=== PATIENT | female | born 1955 | race Caucasian/White ===

== ENCOUNTER → 2018-09-08 | Outpatient (CLI) | payer MEDICARE ==
[~2018-09-08] MED LIST: ACET-1600 PO; LISI-170 PO
== END | disposition home or self-care (01) ==
LOC: STAR 13:35
PROVIDERS: ATTEND Urology
DX: Z01.818 Encounter for other preprocedural examination (principal); N20.0 Calculus of kidney
CPT/HCPCS: 93005

== ENCOUNTER 2018-09-13 10:07 | Observation (INO) | payer MEDICARE ==
[~2018-09-13] VITALS: Ht 162.6 cm; Wt 82.4 kg
[2018-09-13] MEDS ORDERED: SODIUM CHLORIDE 0.9% 1,000 ML IV SCH (10:45)
[2018-09-13] MEDS ORDERED: LACTATED RINGERS 1,000 ML IV SCH (10:45)
[2018-09-13] MEDS ORDERED: CEFAZOLIN PMX 1GM/50ML 50 ML IV ONE (11:00)
[2018-09-13 11:14] VITALS: BP 128/86
[2018-09-13] MEDS ORDERED: FENTANYL PF 250 MCG/5ML ONE (11:54)
[2018-09-13] MEDS ORDERED: LIDOCAINE-MPF 1%, 5ML ONE (12:08)
[2018-09-13] MEDS ORDERED: FENTANYL PF 100 MCG/2ML ONE ×3 (12:13→17:42)
[2018-09-13] MEDS ORDERED: NALOXONE 1 MG/ML, 2ML ONE (12:14)
[2018-09-13] MEDS ORDERED: MIDAZOLAM 1 MG/ML, 5ML ONE ×2 (12:14)
[2018-09-13] MEDS ORDERED: FLUMAZENIL 0.1 MG/1 ML, 5ML ONE (12:14)
[2018-09-13] MEDS ORDERED: ONDANSETRON 2MG/ML, 2ML IVPush ONE (15:00)
[2018-09-13] MEDS ORDERED: DEXAMETHASONE 4 MG/ML, 1ML ONE (15:10)
[2018-09-13] MEDS ORDERED: CIPROFLOXACIN 400MG/200ML PMX ONE (15:10)
[2018-09-13] MEDS ORDERED: PROPOFOL 10 MG/ML, 20ML ONE (15:10)
[2018-09-13] MEDS ORDERED: GLYCOPYRROLATE 0.2MG/1ML, 5ML ONE (15:10)
[2018-09-13] MEDS ORDERED: ROCURONIUM 10MG/ML,5ML ONE (15:10)
[2018-09-13] MEDS ORDERED: OMNIPAQUE 350 MG/ML, 50 ML BOTTLE ONE (15:15)
[2018-09-13] MEDS ORDERED: MEPERIDINE/PF 25MG/0.5ML IVPush PRN (16:00)
[2018-09-13] MEDS ORDERED: OXYcodone 5 MG/5 ML ORAL.SOL UDC PO PRN (16:00)
[2018-09-13] MEDS ORDERED: HYDROmorphone 2 MG/ML, 1ML IVPush PRN (16:00)
[2018-09-13] MEDS ORDERED: hydrALAzine 20 MG/ML, 1ML IV PRN (16:00)
[2018-09-13] MEDS ORDERED: LABETALOL 5MG/ML, 20ML IV PRN (16:00)
[2018-09-13] MEDS ORDERED: PROMETHAZINE 25 MG/ML, 1ML IV PRN (16:00)
[2018-09-13] MEDS ORDERED: METOCLOPRAMIDE 5 MG/ML, 2ML IV PRN (16:00)
[2018-09-13] MEDS ORDERED: LORazepam 2 MG/ML, 1ML IVPush PRN (16:00)
[2018-09-13] MEDS ORDERED: ONDANSETRON 2MG/ML, 2ML IV PRN (17:30)
[2018-09-13] MEDS ORDERED: HYDROmorphone 2 MG/ML, 1ML IV PRN (17:30)
[2018-09-13] MEDS ORDERED: OXYcodone/APAP 5/325MG TABLET PO PRN (17:30)
[2018-09-13] MEDS ORDERED: OXYcodone 5 MG/5 ML ORAL.SOL UDC ONE (17:42)
[2018-09-13] MEDS: FENTANYL PF 100 MCG/2ML IV PRN ×2 (17:45→17:55)
[2018-09-13] MEDS: LACTATED RINGERS 1,000 ML IV SCH (22:50)
[2018-09-14 00:12] VITALS: BP 100/67
[2018-09-14 05:13] LABS: MEAN CORPUSCULAR HEMOGLOBIN 30.9 pg (27.0-34.8); MEAN CORPUSCULAR HGB CONC 33.9 g/dL (32.4-35.8); MEAN CORPUSCULAR VOLUME 91.1 fL (80-100); MEAN PLATELET VOLUME 9.1 fL (7.4-10.4); PLATELET COUNT 198 x10^3/uL (130-400); RED CELL DISTRIBUTION WIDTH 13.4 % (9.6-15.2)
[2018-09-14 05:23] LABS: ANION GAP 7 mmol/L (5-15); CALCIUM 8.1 mg/dL (8.5-10.1); CHLORIDE 111 mmol/L (98-107); CREATININE 0.88 mg/dL (0.55-1.02)
[2018-09-14 05:26] VITALS: BP 114/65
[2018-09-14 05:55] LABS: MD YES
[2018-09-14 05:57] LABS: <PLATELET ESTIMATE> ADEQUATE; <PLT MORPHOLOGY> NORMAL PLT MORPH; <RBC MORPHOLOGY> NORMAL; BAND#(MANUAL) 5.63 x10^3/uL; BANDS%(MANUAL) 15 % (0-7); LYMPH#(MANUAL) 1.13 x10^3/uL (1-3.4); LYMPHS% (MANUAL) 3 % (22-44); MONOS#(MANUAL) 1.88 x10^3/uL (0.3-2.7); MONOS% (MANUAL) 5 % (2-9); SEG#(MANUAL) 28.88 x10^3/uL (1.8-6.8); SEGS% (MANUAL) 77 % (42-75)
[2018-09-14 06:55] VITALS: BP 116/73
[2018-09-14] MEDS: LACTATED RINGERS 1,000 ML IV SCH (07:58)
[2018-09-14 08:18] VITALS: BP 103/65
[2018-09-14] MEDS ORDERED: LISINOPRIL 20 MG TABLET PO SCH (09:00)
[2018-09-14 13:28] VITALS: BP 115/70
[2018-09-14] MEDS ORDERED: HYDR-3240 PO (13:57)
== END 2018-09-14 14:07 | disposition home or self-care (01) ==
LOC: OUT 10:07 → ORIP 17:22 → 4NOR 18:44 → DCLOUNGE 09-14 13:55
PROVIDERS: ADMIT Urology; ATTEND Urology
DX: N20.0 Calculus of kidney (principal)
CPT/HCPCS: 36415; 50081; 50433; 74425; 80048; 82360; 85025; 88300; 96374; 99156; 99157; C1729; C1751; C1769; C1894; C2617; C2625; C2627; G0378; J0690; J0744; J1100; J2250; J2405; J2704; J3010; J3490; J7030; J7120; Q9967; J2310